=== PATIENT | male | born 1970 | race Caucasian/White ===

== ENCOUNTER 2016-12-21 22:28 | Emergency (ER) | payer OTHER ==
[2016-12-21 22:36] VITALS: BP 120/78; PULSE 76; TEMP 97.6; BMI 26.6
--- NOTE | 2016-12-21 22:46 | PDOC ---
History of Present Illness - General Chief Complaint: Pain Stated Complaint: PAIN Time Seen by Provider: 12/21/16 22:34 History Source: Patient Exam Limitations: No Limitations - History of Present Illness Initial Comments: 12/21/16 22:53 This is a 46-year-old male who comes in complaining of pain radiating from his neck across to his shoulder and into the upper part of his arm. Patient said it is been constant 2 days but was much worse when he woke up this morning. Patient works as a route salesman and driver and denies history of any injury or similar pain in the past. Patient denies any chest pain, shortness of breath, back pain. Patient denies any injury to his neck patient said pain is worse with movement of an arm. Patient took some Tylenol for the pain without relief PAST MEDICAL HISTORY: Hypertension and diabetes PAST SURGICAL HISTORY: no significant history FAMILY HISTORY: no pertinant history SOCIAL HISTORY: Pt lives with family and is employed. MEDICATIONS: reviewed ALLERGIES: As per nursing notes Review of Systems General: No fevers or chills, no weakness, no weight loss HEENT: No change in vision. No sore throat,. No ear pain CardioVascular: No chest pain or shortness of breath Respiratory:No cough, or wheezing. Gastrointestinal: no nausea, vomitting, diarrhea or constipation, No rectal bleeding Genitourinary: No dysuria, hematuria, or frequency Musculoskeletal: Upper shoulder pain as per history of present illness Neurologic: No headache, vertigo, dizziness or loss of consciousness Psychiatric: nor depression Skin: No rashes or easy bruising Endocrine: no increased thirst or abnormal weight change Allergic: no skin or latex allergy All other systems reviewed and normal GENERAL: The patient is awake, alert, and fully oriented, in no acute distress. HEAD: Normal with no signs of trauma. EYES: Pupils equal, round and reactive to light, extraocular movements intact, sclera anicteric, conjunctiva clear. EXTREMITIES: Normal range of motion, no edema. Shoulder: There is some tenderness and spasm of the muscles of the upper shoulder. There is no tenderness on palpation of the cervical or upper thoracic spine. There is no tenderness on palpation of the muscles of the rotator cuff. There is decreased range of motion secondary to discomfort of the upper muscles of the back and shoulder. Neurovascular distal is intact. NEUROLOGICAL: Normal speech, normal gait. PSYCH: Normal mood, normal affect. SKIN: Warm, Dry, normal turgor, no rashes or lesions noted. 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 Patient spends lots of time behind the wheel. Patient comes in complaining of symptoms suggestive of a cervical radiculopathy. Patient given an anti- inflammatory Toradol and a muscle relaxant Flexeril. Patient given referral to an orthopedist for follow-up. Past History - Past Medical History Allergies/Adverse Reactions: Allergies Allergy/AdvReac Type Severity Reaction Status Date / Time No Known Allergies Allergy Verified 02/14/15 08:52 Home Medications: Ambulatory Orders Metformin HCl [Metformin HCl ER] 500 mg PO DAILY 04/12/15 Acetaminophen [Tylenol] 650 mg PO ONCE 12/21/16 Cyclobenzaprine HCl [Flexeril 10 mg] 10 mg PO HS PRN #15 tablet 12/21/16 Naproxen [Naprosyn -] 500 mg PO BID #14 tablet MDD 2 12/21/16 Anemia: No Asthma: No Cancer: No Cardiac Disorders: No CVA: No COPD: No CHF: No Dementia: No Diabetes: Yes (ON MEDS) GI Disorders: No Disorders: No HTN: No Hypercholesterolemia: No Liver Disease: No Seizures: No Thyroid Disease: No - Psycho/Social/Smoking Cessation Hx Anxiety: No Suicidal Ideation: No Smoking History: Current every day smoker Have you smoked in the past 12 months: Yes Number of Cigarettes Smoked Daily: 3 If you are a former smoker, when did you quit?: 3 MONTHS AGO Information on smoking cessation initiated: Yes 'Breaking Loose' booklet given: 12/21/16 Hx Alcohol Use: No Drug/Substance Use Hx: No Substance Use Type: None *Physical Exam - Vital Signs Last Vital Signs Temp Pulse Resp BP Pulse Ox 97.6 F 76 18 120/78 96 12/21/16 22:33 12/21/16 22:33 12/21/16 22:33 12/21/16 22:33 12/21/16 22:33 *DC/Admit/Observation/Transfer Diagnosis at time of Disposition: Cervical radicular pain Diagnosis at time of Disposition: (Ruled Out): Abdominal pain - Discharge Dispostion Disposition: HOME Condition at time of disposition: Stable Admit: No - Prescriptions Prescriptions: Cyclobenzaprine HCl [Flexeril 10 mg] 10 mg PO HS PRN #15 tablet PRN Reason: Pain Naproxen [Naprosyn -] 500 mg PO BID #14 tablet MDD 2 - Referrals Referrals: Vianey Simmons MD [Primary Care Provider] - - Patient Instructions Printed Discharge Instructions: DI for Cervical Radiculopathy Additional Instructions: For the pain you can take Naprosyn 1 tablet twice a day with food don't take on an empty stomach. In addition to that for muscle spasm you can take Flexeril one tablet before bed do not take it during the day if you have to drive or do anything that requires your concentration. Follow-up with an orthopedist orthopedist call Dr. Velasquez at [phone] for an appointment. Return to the emergency department immediately with ANY new, persistent or worsening symptoms. Continue any medications as previously prescribed by your physician. You should follow up with your primary doctor as soon as possible regarding today's emergency department visit. . Please make sure your doctor reviews the results of your emergency evaluation. Thank you for coming to the Emergency Department today for your care. It was a pleasure to see you today. Please note that your evaluation is INCOMPLETE until you follow-up with your doctor.
[2016-12-21] MEDS ORDERED: CYCLOBENZAPRINE HCL 10 MG TABLET (FP) PO ONE (22:49)
[2016-12-21] MEDS ORDERED: KETOROLAC TROMETHAMINE 60 MG/2 ML VIAL IM ONE (22:49)
[2016-12-21] MEDS ORDERED: MAG HYDROX/AL HYDROX/SIMETH 30 ML UNIT-DOSE CUP ONE (22:58)
[2016-12-21] MEDS ORDERED: KETOROLAC TROMETHAMINE 60 MG/2 ML VIAL ONE (22:59)
[2016-12-21] MEDS ORDERED: CYCLOBENZAPRINE HCL 10 MG TABLET (FP) ONE (22:59)
== END 2016-12-21 23:24 | disposition home or self-care (01) ==
LOC: FER 22:28
PROC: 3E0233Z Introduction of Anti-inflammatory into Muscle, Percutaneous Approach (ICD-10-PCS; principal; 2016-12-21)
DX: M54.12 Radiculopathy, cervical region (principal); F17.210 Nicotine dependence, cigarettes, uncomplicated; E11.9 Type 2 diabetes mellitus without complications; Z79.84 Long term (current) use of oral hypoglycemic drugs
CPT/HCPCS: 99282-25

== ENCOUNTER 2017-09-13 23:53 | Inpatient (IN) | payer OTHER ==
[2017-09-14] MEDS ORDERED: KETOROLAC TROMETHAMINE 30 MG/1 ML VIAL IVPUSH ONE (00:02)
--- NOTE | 2017-09-14 00:02 | PDOC ---
History of Present Illness - General Chief Complaint: Wound Stated Complaint: RT FOOT PAIN History Source: Patient Exam Limitations: No Limitations - History of Present Illness Initial Comments: 09/14/17 00:14 This is a 47-year-old male with history of ssh-peouqay-dokmidsaz diabetes. Patient comes in with complaint of right foot pain. Patient said that he just developed an infection between his fourth and fifth toes yesterday and it got progressively worse. Patient went to his primary care doctor today and was started on antibiotics and is taking 2 doses. However patient said foot is getting worse and now there is pus coming from the area as well as increased pain. Patient denies any fevers or chills. Patient denies history of trauma. Patient is otherwise healthy. Patient said his sugars have been elevated PAST MEDICAL HISTORY: As per history of present illness PAST SURGICAL HISTORY: no significant history FAMILY HISTORY: no pertinant history SOCIAL HISTORY: Pt lives with family and is employed. MEDICATIONS: reviewed ALLERGIES: As per nursing notes Review of Systems General: No fevers or chills, no weakness, no weight loss HEENT: No change in vision. No sore throat,. No ear pain CardioVascular: No chest pain or shortness of breath Respiratory:No cough, or wheezing. Gastrointestinal: no nausea, vomitting, diarrhea or constipation, No rectal bleeding Genitourinary: No dysuria, hematuria, or frequency Musculoskeletal: No joint or muscle pain or swelling Neurologic: No headache, vertigo, dizziness or loss of consciousness Psychiatric: nor depression Skin: No rashes or easy bruising Endocrine: no increased thirst or abnormal weight change Allergic: no skin or latex allergy All other systems reviewed and normal Exam: General: Well-nourished well-developed individual, no acute distress HEENT: Throat: Normal, tonsils normal, no erythema or exudate Neck: Supple, no meningeal signs, no lymphadenopathy Eyes::Pupils equal reactive and round, extraocular motion intact Chest: Nontender to palpation Cardiac: S1-S2 normal, regular rate and rhythm, no murmurs rubs or gallops Respiratory: Lungs clear to auscultation bilateral Abdomen: Soft, nondistended, normal bowel sounds, nontender to palpation diffusely Extremities: Right foot there is swelling, redness, increased warmth laterally. There is an area of excoriation between the fourth and fifth toe with some discharge and erythema and increased warmth. Skin: No rashes Neuro: Alert and oriented x3, nonfocal exam, grossly intact, normal gait Psych: Normal mood and affect Chest x-ray no acute pathology Foot x-ray there appears to be some sort of collection in the deep space between the fourth and fifth toe EKG normal sinus rhythm with left axis deviation no acute ST-T wave changes Assessment and plan: This is a 47-year-old male who comes in complaining of pain in his right foot secondary to an infection. Patient was started on amoxicillin without improvement of his symptoms. Patient did not have fever did not have a white count here in the emergency room her left shift. Patient however was started on Zosyn and vancomycin and will be admitted to a telemetry bed for additional antibiotics and management of his cellulitis. Patient most likely will also need a surgical consult to evaluate the extent of the infection 09/14/17 01:17 Past History - Past Medical History Allergies/Adverse Reactions: Allergies Allergy/AdvReac Type Severity Reaction Status Date / Time No Known Allergies Allergy Verified 02/14/15 08:52 Home Medications: Ambulatory Orders Metformin HCl [Metformin HCl ER] 500 mg PO DAILY 04/12/15 Amoxicillin/Potassium Clav [Amox-Clav 875-125 mg Tablet] 1 each PO TID 09/13/17 Anemia: No Asthma: No Cancer: No Cardiac Disorders: No CVA: No COPD: No CHF: No Dementia: No Diabetes: Yes (ON MEDS) GI Disorders: No Disorders: No HTN: No Hypercholesterolemia: No Liver Disease: No Seizures: No Thyroid Disease: No - Suicide/Smoking/Psychosocial Hx Smoking History: Current every day smoker Have you smoked in the past 12 months: Yes Number of Cigarettes Smoked Daily: 3 If you are a former smoker, when did you quit?: 3 MONTHS AGO 'Breaking Loose' booklet given: 12/21/16 Hx Alcohol Use: No Drug/Substance Use Hx: No Substance Use Type: None ED Treatment Course - LABORATORY CBC & Chemistry Diagram: 09/14/17 00:10 09/14/17 00:10 *DC/Admit/Observation/Transfer Diagnosis at time of Disposition: Diabetic foot infection - Discharge Dispostion Condition at time of disposition: Stable Admit: Yes - Referrals - Patient Instructions - Post Discharge Activity
[2017-09-14] MEDS ORDERED: KETOROLAC TROMETHAMINE 30 MG/1 ML VIAL ONE (00:04)
[2017-09-14] MEDS ORDERED: VANCOMYCIN 1,000 MG in DEXTROSE 5%-WATER - 250 ML IVPB STA (00:12)
[2017-09-14] MEDS ORDERED: VANCOMYCIN 1,000 MG VIAL (RESTRICTED TO ID ONLY) ONE (00:15)
[2017-09-14 01:02] LABS: BASOPHIL 0.9 % (0-2.0); EOSINOPHIL 3.1 % (0-4.5); MCHC 33.8 g/dl (32.0-35.9); MEAN CELL VOLUME 85.7 fl (80-96); NEUTROPHILS 48.7 % (42.8-82.8); PLATELET COUNT 112 K/MM3 (134-434); RDW 12.6 % (11.9-15.9); WHITE BLOOD COUNT 8.3 K/mm3 (4.0-10.0)
[2017-09-14 01:24] LABS: ALBUMIN 3.8 g/dl (3.4-5.0); ANION GAP 14 (8-16); BILIRUBIN,TOTAL 0.3 mg/dL (0.2-1.0); CALCIUM 9.1 mg/dL (8.5-10.1); CO2 20 mmol/L (21-32); CREATININE 0.9 mg/dL (0.7-1.3); SGOT/AST 10 U/L (15-37); SGPT/ALT 36 U/L (12-78); TOT PROT 7.2 g/dl (6.4-8.2)
[2017-09-14 01:25] LABS: ALK PHOS 66 U/L (45-117)
[2017-09-14] MEDS ORDERED: PIPERACILLIN/TAZOBACTAM 3.375 GM VIAL IVPB ONE (01:29)
[2017-09-14] MEDS ORDERED: PIPERACILLIN/TAZOB 3.375 GM/50 ML PRE-DOCKED IVPB ONE (01:32)
[2017-09-14 01:35] LABS: GLUCOSE,RANDOM 335 mg/dL (74-106)
[2017-09-14] MEDS ORDERED: INSULIN REGULAR HUMAN 100 UNITS/ML *VIAL IVPUSH ONE (01:42)
[2017-09-14] MEDS ORDERED: INSULIN REGULAR HUMAN 100 UNITS/ML *VIAL ONE (01:46)
[2017-09-14] MEDS ORDERED: PIPERACIL/TAZOB 3.375 GM 3.375 GM/50 ML PREMIX IVPB ONE (01:51)
[2017-09-14 02:56] VITALS: BMI 26.1
--- NOTE | 2017-09-14 04:09 | HP ---
CHIEF COMPLAINT: Pain, Redness and swelling to R-foot PCP: Dr Ruben Simmons HISTORY OF PRESENT ILLNESS: This is a 47 y/o man with a pMHx of DM, who was recently started on insulin. Who presents to the ED with pain, redness, swelling to his right foot and pus between his 4th and 5th toes. Patient reports having an infection to his toes 2 days ago, saw his PCP yesterday and was placed on Amoxicillin. Patient reports the swelling increased up his foot to his lower leg. Patient reports noting a foul smelling pus from around his toes. He denies having fever, chills, cough, SOB, CP, AP, N/V/D, constipation, dysuira ER course was notable for: (1) Foot Xray (2) Glucose 335 (3) Recent Travel: None PAST MEDICAL HISTORY: DM PAST SURGICAL HISTORY: None Social History: Smoking: Cigarettes < 1 pack Alcohol: None Drugs: None Lives with family Family History: Mother: DM Allergies No Known Allergies Allergy (Verified 02/14/15 08:52) HOME MEDICATIONS: Home Medications Medication Instructions Recorded Metformin HCl [Metformin HCl ER] 500 mg PO DAILY 04/12/15 Amoxicillin/Potassium Clav 1 each PO TID 09/13/17 [Amox-Clav 875-125 mg Tablet] REVIEW OF SYSTEMS CONSTITUTIONAL: Absent: fever, chills, diaphoresis, generalized weakness, malaise, loss of appetite, weight change HEENT: Absent: rhinorrhea, nasal congestion, throat pain, throat swelling, difficulty swallowing, mouth swelling, ear pain, eye pain, visual changes CARDIOVASCULAR: Absent: chest pain, syncope, palpitations, irregular heart rate, lightheadedness , peripheral edema RESPIRATORY: Absent: cough, shortness of breath, dyspnea with exertion, orthopnea, wheezing, stridor, hemoptysis GASTROINTESTINAL: Absent: abdominal pain, abdominal distension, nausea, vomiting, diarrhea, constipation, melena, hematochezia GENITOURINARY: Absent: dysuria, frequency, urgency, hesitancy, hematuria, flank pain, genital pain MUSCULOSKELETAL: right foot pain/tightness Absent: myalgia, arthralgia, joint swelling, back pain, neck pain SKIN: pus, redness to toes #4-5 Absent: rash, itching, pallor HEMATOLOGIC/IMMUNOLOGIC: Absent: easy bleeding, easy bruising, lymphadenopathy, frequent infections ENDOCRINE: Absent: unexplained weight gain, unexplained weight loss, heat intolerance, cold intolerance NEUROLOGIC: Absent: headache, focal weakness or paresthesias, dizziness, unsteady gait, seizure, mental status changes, bladder or bowel incontinence PSYCHIATRIC: Absent: anxiety, depression, suicidal or homicidal ideation, hallucinations. PHYSICAL EXAMINATION Vital Signs - 24 hr 09/13/17 09/14/17 09/14/17 23:59 01:17 01:49 Temperature 98.4 F 97.5 F L 97.5 F L Pulse Rate 79 71 71 Respiratory 16 16 16 Rate Blood Pressure 122/81 107/63 107/63 O2 Sat by Pulse 97 97 Oximetry (%) GENERAL: Awake, alert, and fully oriented, in no acute distress. HEAD: Normal with no signs of trauma. EYES: Pupils equal, round and reactive to light, extraocular movements intact, sclera anicteric, conjunctiva clear. No lid lag. EARS, NOSE, THROAT: Ears normal, nares patent, oropharynx clear without exudates. Moist mucous membranes. NECK: Normal range of motion, supple without lymphadenopathy, JVD, or masses. LUNGS: Breath sounds equal, clear to auscultation bilaterally. No wheezes, and no crackles. No accessory muscle use. HEART: Regular rate and rhythm, normal S1 and S2 without murmur, rub or gallop. ABDOMEN: Soft, nontender, not distended, normoactive bowel sounds, no guarding, no rebound, no masses. No hepatomegaly or splenomegaly. MUSCULOSKELETAL: Normal range of motion at all joints. No bony deformities or tenderness. No CVA tenderness. UPPER EXTREMITIES: 2+ pulses, warm, well-perfused. No cyanosis. No clubbing. No peripheral edema. LOWER EXTREMITIES: 2+ pulses, warm, well-perfused. No calf tenderness. +1 R- foot pitting peripheral edema NEUROLOGICAL: Cranial nerves II-XII intact. Normal speech. Gait not observed. PSYCHIATRIC: Cooperative. Good eye contact. Appropriate mood and affect. SKIN: Warm, dry, normal turgor, no rashes. normal capillary refill. +erythema, TTP between #4, #5 toes with yellow tinged discharge noted Laboratory Results - last 24 hr 09/14/17 09/14/17 09/14/17 00:10 00:10 03:08 WBC 8.3 RBC 5.36 Hgb 15.5 Hct 46.0 MCV 85.7 MCH 29.0 MCHC 33.8 RDW 12.6 Plt Count 112 L MPV 11.0 Neutrophils % 48.7 D Lymphocytes % 40.0 D Monocytes % 7.3 Eosinophils % 3.1 Basophils % 0.9 Sodium 139 Potassium 4.1 D Chloride 105 Carbon Dioxide 20 L Anion Gap 14 BUN 11 D Creatinine 0.9 D Creat Clearance w eGFR > 60 POC Glucometer 110 Random Glucose 335 H* D Calcium 9.1 Total Bilirubin 0.3 D AST 10 L D ALT 36 D Alkaline Phosphatase 66 D Total Protein 7.2 Albumin 3.8 D ASSESSMENT/PLAN: This a 47 y/o man with a PMHx of DM. Placed in Observation for Diabetic Foot Infection secondary to Failed Outpatient Therapy for further evaluation of their emergent condition. FEN - Tolerates PO fluids - Replete lytes prn - Diabetic Diet Code Status: Full Code Dispo: Observation Problem List - Problem (1) Diabetic foot infection Assessment/Plan: - Likely secondary to staph - Wound Culture-pending - Appreciate ID Consult - Given Zosyn, Vancomycin in ED, will continue - Appreciate Surgical Consult - Consider Podiatry Consult - Repeat CBC, BMP in am - Elevate extremity - Pain Mgmt- Motrin - Consider Hyperbaric Therapy in outpatient Code(s): E11.69 - TYPE 2 DIABETES MELLITUS WITH OTHER SPECIFIED COMPLICATION; L08.9 - LOCAL INFECTION OF THE SKIN AND SUBCUTANEOUS TISSUE, UNSP (2) Diabetes mellitus Assessment/Plan: - Uncontrolled - BGMs - ISS - HgbA1C in am - Monitor renal function - FU with Endocrinology outpatient - Hold Metformin concern for LA Code(s): E11.9 - TYPE 2 DIABETES MELLITUS WITHOUT COMPLICATIONS (3) DVT prophylaxis Assessment/Plan: - OOB - Heparin SQ Code(s): WLY1169 - Visit type - Emergency Visit Emergency Visit: Yes ED Registration Date: 09/14/17 Care time: The patient presented to the Emergency Department on the above date and was hospitalized for further evaluation of their emergent condition. - New Patient This patient is new to me today: Yes Date on this admission: 09/14/17 - Critical Care Critical Care patient: No
[2017-09-14] MEDS: INSULIN SLIDING SCALE (NOVOLOG) 1 VIAL SQ SCH ×4 (06:53→17:50)
--- NOTE | 2017-09-14 08:56 | PN ---
Physical Exam: SUBJECTIVE: Patient seen and examined, patient reports improvement of pain to the right foot, denies any tactile fevers. OBJECTIVE: patient is a 47 y/o male, with a past medical history of IDDM. patient was admitted from the emergency department for cellulitis to the right foot after failing outpatient antibiotic therapy. Vital Signs Period Temp Pulse Resp BP Sys/Osman Pulse Ox Last 24 Hr 97.4 F-98.4 F 68-79 16-18 107-122/63-81 97-97 GENERAL: The patient is awake, alert, and fully oriented, in no acute distress. HEAD: Normal with no signs of trauma. EYES: PERRL, extraocular movements intact, sclera anicteric, conjunctiva clear. No ptosis. ENT: Ears normal, nares patent, oropharynx clear without exudates, moist mucous membranes. NECK: Trachea midline, full range of motion, supple. LUNGS: Breath sounds equal, clear to auscultation bilaterally, no wheezes, no crackles, no accessory muscle use. HEART: Regular rate and rhythm, S1, S2 without murmur, rub or gallop. ABDOMEN: Soft, nontender, nondistended, normoactive bowel sounds, no guarding, no rebound, no hepatosplenomegaly, no masses. EXTREMITIES: 2+ pulses, warm, well-perfused, no edema. RIGHT LOWER EXTREMITY: 5cm of erythema to dorsum of foot, tenderness noted to the webspace of the 4th and 5th digits with induration. NEUROLOGICAL: Cranial nerves II through XII grossly intact. Normal speech, gait not observed. PSYCH: Normal mood, normal affect. SKIN: Warm, dry, normal turgor, no rashes or lesions noted Laboratory Results - last 24 hr 09/14/17 09/14/17 09/14/17 00:10 00:10 03:08 WBC 8.3 RBC 5.36 Hgb 15.5 Hct 46.0 MCV 85.7 MCH 29.0 MCHC 33.8 RDW 12.6 Plt Count 112 L MPV 11.0 Neutrophils % 48.7 D Lymphocytes % 40.0 D Monocytes % 7.3 Eosinophils % 3.1 Basophils % 0.9 Sodium 139 Potassium 4.1 D Chloride 105 Carbon Dioxide 20 L Anion Gap 14 BUN 11 D Creatinine 0.9 D Creat Clearance w eGFR > 60 POC Glucometer 110 Random Glucose 335 H* D Calcium 9.1 Total Bilirubin 0.3 D AST 10 L D ALT 36 D Alkaline Phosphatase 66 D Total Protein 7.2 Albumin 3.8 D 09/14/17 06:52 WBC RBC Hgb Hct MCV MCH MCHC RDW Plt Count MPV Neutrophils % Lymphocytes % Monocytes % Eosinophils % Basophils % Sodium Potassium Chloride Carbon Dioxide Anion Gap BUN Creatinine Creat Clearance w eGFR POC Glucometer 134 Random Glucose Calcium Total Bilirubin AST ALT Alkaline Phosphatase Total Protein Albumin Active Medications Generic Name Dose Route Start Last Admin Trade Name Freangel PRN Reason Stop Dose Admin Insulin Aspart 1 vial 09/14/17 07:00 09/14/17 06:53 Novolog Vial Sliding Scale - SQ Not Given [facility]IDAC [facility] Protocol ASSESSMENT/PLAN: 1) ID cellulitis of right foot - xray of right foot, no foreign body or gas noted - continue zosyn and vancomycin, appreciate ID input for antibiotic approval - pending mri of right lower extremity today to rule out osteo - case discussed with Dr Stone, podiatry, will evaluate patient today - follow wound cultures taken in ED, no leukocytosis, patient is afebrile - trend wbc and fever curve 2) endo iddm - pending hemoglobin a1c, fingersticks achs, continue regular insulin sliding scale f/e/n - npo until podiatry eval - replete electrolytes prn ppx - hold ac pending podiatry eval - scd - oob - pepcid dispo: requires inpatient admission - Visit type - Emergency Visit Emergency Visit: Yes ED Registration Date: 09/14/17 Care time: The patient presented to the Emergency Department on the above date and was hospitalized for further evaluation of their emergent condition. - New Patient This patient is new to me today: Yes Date on this admission: 09/18/17 - Critical Care Critical Care patient: No - Discharge Referral Referred to [facility] Med P.C.: No
[2017-09-14 09:07] LABS: BASOPHIL 0.7 % (0-2.0); MCH 29.5 pg (25.7-33.7); MCHC 34.1 g/dl (32.0-35.9); MEAN CELL VOLUME 86.5 fl (80-96); PLATELET COUNT 105 K/MM3 (134-434); RDW 11.8 % (11.9-15.9); WHITE BLOOD COUNT 9.2 K/mm3 (4.0-10.8)
[2017-09-14 09:16] LABS: ANION GAP 8 (8-16); CALCIUM 9.1 mg/dl (8.4-10.2); CO2 22 mmol/L (22-28); CREATININE 0.8 mg/dl (0.6-1.3); GLUCOSE,RANDOM 186 mg/dl (74-106)
[2017-09-14] MEDS ORDERED: ACETAMINOPHEN 325 MG TABLET (FP) PO PRN (11:31)
--- NOTE | 2017-09-14 11:34 | PN ---
Progress Note (short form) - Note Progress Note: ID Consult dictated Diabetic foot infection NIDDM Await c/s Podiatry evaluation Empiric vancomycin zosyn
[2017-09-14] MEDS ORDERED: SODIUM CHLORIDE 0.9%/KCL 20 MEQ/1,000 ML INFUS.BAG IV SCH (11:45)
[2017-09-14] MEDS ORDERED: oxyCODONE HCL 5 MG TABLET PO PRN ×2 (11:49→15:47)
[2017-09-14] MEDS ORDERED: VANCOMYCIN 1 GRAM (PRE-DOCKED) 1,000 MG/250 ML BAG IVPB ONE (12:00)
[2017-09-14] MEDS: RANITIDINE HCL 150 MG TABLET (FP) PO SCH (12:00)
--- NOTE | 2017-09-14 12:07 | CONS ---
DATE OF CONSULTATION: 09/14/2017 HISTORY OF PRESENT ILLNESS: The patient is a 47-year-old diabetic male evaluated for right diabetic foot infection. Patient states that one day prior to admission, he developed acute onset of right foot pain, swelling, and erythema. He had apparently developed some type of break in the skin in the web space of the right 4th and 5th toes. He was seen by his primary care physician and was prescribed Augmentin. Despite taking 2 doses, it became progressively worse. He presented to the emergency room where he was admitted. There were reports that purulent drainage was noted. He had erythema extending to the middle aspect of the dorsum of the foot. Patient reports pain on ambulation. He denies any fever or chills. PAST MEDICAL HISTORY: Positive for fkq-kybktqg-mavumexdu diabetes mellitus. ALLERGIES: No known allergies. MEDICATIONS: Metformin and Augmentin. SOCIAL HISTORY: Positive for tobacco use. LABORATORY DATA: White count 9.2, hematocrit 48.6, platelet count 105. BUN 14, creatinine 0.8. X-ray of the foot negative for fracture or dislocation. Chest x-ray negative. PHYSICAL EXAMINATION: General: He is awake and alert. He is not acutely toxic-appearing. Vital signs: Temperature 97.4, blood pressure 118/71, pulse 68 and regular, respirations 18 per minute. HEENT: Sclerae anicteric. Heart: Heart sounds S1, S2. Lungs: Clear. Abdomen: Soft. No tenderness elicited. Extremities: There is a fissure present between the right 4th and 5th toes. There is mild swelling of the dorsum of the right foot and erythema extending from the base of the toes to the mid foot. IMPRESSION: 1. Diabetic foot infection, right foot. 2. Gws-vaqxksm-ypnaxsind diabetes mellitus. Continue vancomycin and Zosyn. Await wound culture results, podiatry evaluation. May substitute oral antibiotic therapy over the next 24 hours. Would suggest p.o. clindamycin and Levaquin pending cultures. Thank you for the kind referral. LUI BARBA M.D. BRITNEY/[id number]
[2017-09-14] MEDS: VANCOMYCIN 1 GRAM (PRE-DOCKED) 1,000 MG/250 ML BAG IVPB SCH ×2 (12:08→23:51)
[2017-09-14] MEDS: PIPERACILLIN/TAZOB 3.375 GM 3.375 GM/50 ML BAG IVPB SCH ×2 (12:08→17:52)
--- NOTE | 2017-09-14 16:06 | EKG ---
Test Reason : Blood Pressure : / mmHG Vent. Rate : 075 BPM Atrial Rate : 075 BPM P-R Int : 166 ms QRS Dur : 088 ms QT Int : 370 ms P-R-T Axes : 040 -31 043 degrees QTc Int : 413 ms SINUS RHYTHM RSR' OR QR PATTERN IN V1 SUGGESTS RIGHT VENTRICULAR CONDUCTION DELAY NO PREVIOUS ECGS AVAILABLE Confirmed by NIYA COTTRELL MD ([id number]) on 09/14/2017 4:06:22 PM Referred By: HEATH MARSH Confirmed By:INYA COTTRELL MD
[2017-09-14] MEDS ORDERED: INSULIN (NOVOLOG) ASPART 100 UNITS/ML 10ML VIAL ONE ×2 (17:32→23:02)
[2017-09-14] MEDS ORDERED: Insulin (LOG) Aspart 100 UNITS/ML VIAL SQ ONE (23:00)
[2017-09-15] MEDS: PIPERACILLIN/TAZOB 3.375 GM 3.375 GM/50 ML BAG IVPB SCH ×3 (02:07→17:19)
[2017-09-15] MEDS: INSULIN SLIDING SCALE (NOVOLOG) 1 VIAL SQ SCH ×3 (06:39→17:19)
[2017-09-15 08:56] LABS: ANION GAP 5 (8-16); CALCIUM 9.2 mg/dl (8.4-10.2); CO2 22 mmol/L (22-28); CREATININE 0.8 mg/dl (0.6-1.3); GLUCOSE,RANDOM 245 mg/dl (74-106); PHOSPHOROUS 4.7 mg/dl (2.5-4.6)
[2017-09-15 09:03] LABS: BASOPHIL 0.9 % (0-2.0); EOSINOPHIL 2.6 % (0-4.5); MCH 29.4 pg (25.7-33.7); MCHC 33.9 g/dl (32.0-35.9); MEAN CELL VOLUME 86.7 fl (80-96); MEAN PLT VOLUME 12.1 fl (7.5-11.1); NEUTROPHILS 54.4 % (42.8-82.8); PLATELET COUNT 107 K/MM3 (134-434); RDW 11.6 % (11.9-15.9); WHITE BLOOD COUNT 8.3 K/mm3 (4.0-10.8)
[2017-09-15] MEDS: RANITIDINE HCL 150 MG TABLET (FP) PO SCH (10:36)
[2017-09-15] MEDS ORDERED: INSULIN (NOVOLOG) ASPART 100 UNITS/ML 10ML VIAL ONE (11:39)
--- NOTE | 2017-09-15 12:22 | PN ---
Physical Exam: SUBJECTIVE: Patient seen and examined at the bedside. OBJECTIVE: Vital Signs Period Temp Pulse Resp BP Sys/Osman Pulse Ox Last 24 Hr 98.6 F-98.9 F 63-69 18-18 111-116/63-67 96-98 GENERAL: The patient is awake, alert, and fully oriented, in no acute distress. HEAD: Normal with no signs of trauma. EYES: PERRL, extraocular movements intact, sclera anicteric, conjunctiva clear. No ptosis. ENT: Ears normal, nares patent, oropharynx clear without exudates, moist mucous membranes. NECK: Trachea midline, full range of motion, supple. LUNGS: Breath sounds equal, clear to auscultation bilaterally, no wheezes, no crackles, no accessory muscle use. HEART: Regular rate and rhythm, S1, S2 without murmur, rub or gallop. ABDOMEN: Soft, nontender, nondistended, normoactive bowel sounds, no guarding, no rebound, no hepatosplenomegaly, no masses. EXTREMITIES: right foot anterior aspect edema and tenderness, no redness NEUROLOGICAL: Normal speech, gait not observed. PSYCH: Normal mood, normal affect. Laboratory Results - last 24 hr 09/14/17 09/14/17 09/15/17 17:05 21:48 06:34 WBC RBC Hgb Hct MCV MCH MCHC RDW Plt Count MPV Neutrophils % Lymphocytes % Monocytes % Eosinophils % Basophils % Sodium Potassium Chloride Carbon Dioxide Anion Gap BUN Creatinine POC Glucometer 151 291 238 Random Glucose Calcium Phosphorus Magnesium 09/15/17 09/15/17 09/15/17 07:08 07:08 11:32 WBC 8.3 RBC 5.53 Hgb 16.3 Hct 47.9 MCV 86.7 MCH 29.4 MCHC 33.9 RDW 11.6 L Plt Count 107 L MPV 12.1 H D Neutrophils % 54.4 Lymphocytes % 35.3 Monocytes % 6.8 Eosinophils % 2.6 Basophils % 0.9 Sodium 137 Potassium 4.2 Chloride 110 H Carbon Dioxide 22 Anion Gap 5 L BUN 14 Creatinine 0.8 POC Glucometer 209 Random Glucose 245 H D Calcium 9.2 Phosphorus 4.7 H Magnesium 2.0 Active Medications Generic Name Dose Route Start Last Admin Trade Name Freq PRN Reason Stop Dose Admin Acetaminophen 650 mg 09/14/17 11:31 Tylenol - PO Q4H PRN FEVER OR PAIN LEVEL 1-4 Potassium Chloride/Sodium Chloride 20 meq in 1,000 mls @ 100 mls/hr 09/14/17 11:45 09/14/17 12:08 Ns+20 Meq Kcl - IV 100 mls/hr ASDIR RONNI Administration Vancomycin HCl 1,000 mg in 250 mls @ 166.667 mls/hr 09/14/17 12:30 09/14/17 23:51 Vancomycin (Pre-Docked) IVPB 166.667 mls/hr Q12H RONNI Administration Piperacillin Sod/Tazobactam Sod 3.375 gm in 50 mls @ 100 mls/hr 09/14/17 11: 45 09/15/17 10:36 Zosyn 3.375gm Ivpb (Pre-Docked) IVPB 100 mls/hr Q8H-IV RONNI Administration Protocol Insulin Aspart 1 vial 09/15/17 12:21 Novolog Vial Sliding Scale - SQ TIDAC RONNI Protocol Oxycodone HCl 5 mg 09/14/17 15:47 Roxicodone - PO Q4H PRN PAIN LEVEL >5 Ranitidine HCl 150 mg 09/14/17 11:45 09/15/17 10:36 Zantac - PO 150 mg DAILY RONNI Administration ASSESSMENT/PLAN: Patient 47 year old male with a significant past medical history of diabetes mellitus. He comes into the ED on 09/14/2017 with complaints of right foot pain. Patient said that he just developed an infection between his fourth and fifth toes yesterday and it got progressively worse. Patient went to his primary care doctor today and was started on antibiotics. However patient reported that his foot is getting worse and now there is pus coming from the area as well as increased pain. Patient denies any fevers or chills. Patient denies history of trauma. Imaging: Lower ext MRI: pending official read. ID: Cellulits of right foot, acute On Zosyn and Vanco as per ID MRI pending Podiatry following Blood cultures pending Wound cultures shows lactose fermenting neg bacilli Monitor vitals, labs Endocrine: Diabetes, blood sugars elevated Novolog with tighter control BGMs ac/hs Hmga1c 9.8 F.E.N. Fluids: tolerating PO, will d/c ivf Electrolytes: wnl monitor Nutrition: diabetic diet Prophyaxis DVT: SCDs GI: Zantac Disposition: full code. - Visit type - Emergency Visit Emergency Visit: Yes ED Registration Date: 09/14/17 Care time: The patient presented to the Emergency Department on the above date and was hospitalized for further evaluation of their emergent condition. - New Patient This patient is new to me today: Yes Date on this admission: 09/15/17 - Critical Care Critical Care patient: No - Discharge Referral Referred to [facility] Med [facility].: No
[2017-09-15] MEDS: VANCOMYCIN 1 GRAM (PRE-DOCKED) 1,000 MG/250 ML BAG IVPB SCH (12:35)
[2017-09-15 13:55] LABS: ALBUMIN 3.7 g/dl (3.5-5.0); ALK PHOS 58 U/L (32-92); ANION GAP 5 (8-16); BILIRUBIN,TOTAL 0.9 mg/dl (0.2-1.0); CALCIUM 9.4 mg/dl (8.4-10.2); CO2 23 mmol/L (22-28); CREATININE 0.9 mg/dl (0.6-1.3); GLUCOSE,RANDOM 249 mg/dl (74-106); SGOT/AST 17 U/L (10-42); SGPT/ALT 27 U/L (10-40); TOT PROT 6.5 g/dl (6.4-8.3)
[2017-09-16] MEDS: VANCOMYCIN 1 GRAM (PRE-DOCKED) 1,000 MG/250 ML BAG IVPB SCH ×2 (00:07→12:45)
[2017-09-16] MEDS: PIPERACILLIN/TAZOB 3.375 GM 3.375 GM/50 ML BAG IVPB SCH ×2 (02:04→09:34)
[2017-09-16 06:06] VITALS: TEMP 98
[2017-09-16] MEDS: INSULIN SLIDING SCALE (NOVOLOG) 1 VIAL SQ SCH ×2 (07:35→12:33)
--- NOTE | 2017-09-16 08:21 | PN ---
Physical Exam: SUBJECTIVE: Patient seen and examined; states he is feeling better. OBJECTIVE: 09/14/2017 Podiatry chart notes reviewed: Continue IV Vanco and Zosyn, switch to PO antbitics if cellulitis improves over next 1-2 days No need for I&D Patient to follow up in podiatry office next week after discharge Vital Signs Period Temp Pulse Resp BP Sys/Osman Pulse Ox Last 24 Hr 97.8 F-98.0 F 60-66 16-18 104-125/65-88 95-98 GENERAL: The patient is awake, alert, and fully oriented, in no acute distress. HEAD: Normal with no signs of trauma. EYES: PERRL, extraocular movements intact, sclera anicteric, conjunctiva clear. No ptosis. ENT: Ears normal, nares patent, oropharynx clear without exudates, moist mucous membranes. NECK: Trachea midline, full range of motion, supple. LUNGS: Breath sounds equal, clear to auscultation bilaterally, no wheezes, no crackles, no accessory muscle use. HEART: Regular rate and rhythm, S1, S2 without murmur, rub or gallop. ABDOMEN: Soft, nontender, nondistended, normoactive bowel sounds, no guarding, no rebound, no hepatosplenomegaly, no masses. EXTREMITIES: right foot anterior aspect improvement of edema and tenderness, no redness or tenderness on exam. NEUROLOGICAL: Normal speech, gait not observed. PSYCH: Normal mood, normal affect. Laboratory Results - last 24 hr 09/15/17 09/15/17 09/15/17 07:08 07:08 11:32 WBC 8.3 RBC 5.53 Hgb 16.3 Hct 47.9 MCV 86.7 MCH 29.4 MCHC 33.9 RDW 11.6 L Plt Count 107 L MPV 12.1 H D Neutrophils % 54.4 Lymphocytes % 35.3 Monocytes % 6.8 Eosinophils % 2.6 Basophils % 0.9 Sodium 137 Potassium 4.2 Chloride 110 H Carbon Dioxide 22 Anion Gap 5 L BUN 14 Creatinine 0.8 Creat Clearance w eGFR POC Glucometer 209 Random Glucose 245 H D Calcium 9.2 Phosphorus 4.7 H Magnesium 2.0 Total Bilirubin AST ALT Alkaline Phosphatase Total Protein Albumin 09/15/17 09/15/17 09/15/17 13:10 16:58 21:34 WBC RBC Hgb Hct MCV MCH MCHC RDW Plt Count MPV Neutrophils % Lymphocytes % Monocytes % Eosinophils % Basophils % Sodium 135 L Potassium 3.8 Chloride 107 Carbon Dioxide 23 Anion Gap 5 L BUN 13 Creatinine 0.9 Creat Clearance w eGFR > 60 POC Glucometer 277 217 Random Glucose 249 H Calcium 9.4 Phosphorus Magnesium Total Bilirubin 0.9 D AST 17 D ALT 27 D Alkaline Phosphatase 58 D Total Protein 6.5 Albumin 3.7 Active Medications Generic Name Dose Route Start Last Admin Trade Name Freq PRN Reason Stop Dose Admin Acetaminophen 650 mg 09/14/17 11:31 Tylenol - PO Q4H PRN FEVER OR PAIN LEVEL 1-4 Docusate Sodium 100 mg 09/16/17 08:15 Colace - PO BID RONNI Vancomycin HCl 1,000 mg in 250 mls @ 166.667 mls/hr 09/14/17 12:30 09/16/17 00:07 Vancomycin (Pre-Docked) IVPB 166.667 mls/hr Q12H RONNI Administration Piperacillin Sod/Tazobactam Sod 3.375 gm in 50 mls @ 100 mls/hr 09/14/17 11: 45 09/16/17 02:04 Zosyn 3.375gm Ivpb (Pre-Docked) IVPB 100 mls/hr Q8H-IV RONNI Administration Protocol Insulin Aspart 1 vial 09/15/17 12:21 09/15/17 17:19 Novolog Vial Sliding Scale - SQ 8 units TIDAC RONNI Administration Protocol Oxycodone HCl 5 mg 09/14/17 15:47 Roxicodone - PO Q4H PRN PAIN LEVEL >5 Polyethylene Glycol 17 gm 09/16/17 08:15 Miralax (For Daily Use) - PO DAILY RONNI Ranitidine HCl 150 mg 09/14/17 11:45 09/15/17 10:36 Zantac - PO 150 mg DAILY RONNI Administration ASSESSMENT/PLAN: Patient 47 year old male with a significant past medical history of diabetes mellitus. He comes into the ED on 09/14/2017 with complaints of right foot pain. Patient said that he just developed an infection between his fourth and fifth toes yesterday and it got progressively worse. Patient went to his primary care doctor today and was started on antibiotics. However patient reported that his foot is getting worse and now there is pus coming from the area as well as increased pain. Patient denies any fevers or chills. Patient denies history of trauma. Imaging: Lower ext MRI: pending ID: Cellulits of right foot, resolving WBC within normal limits, afebrile, blood culures ngtd On Zosyn and Vanco as per ID MRI pending official read: left message at MRI department Podiatry evaluated, notes reviewed, no I&D needed, outpatient followup Blood cultures negative Wound cultures shows lactose fermenting neg bacilli Monitor vitals, labs Consider switch to PO antibiotics as per ID, outpatient podiatry followup Endocrine: Diabetes, blood sugars elevated Novolog with tighter control during hospitalization BGMs in the 200s Home Metformin changed to Metformin 500mg BID instead of daily Patient encouraged to check his BGMs at home and to keep a record He states he has arranged to see an Pulverizer Operator on discharge He may need to start Novolog if his blood sugars remain elevated Discussed findings with patient and he is in agreement Glucometer and supplies ordered Hmga1c 9.8 Hematology: Thrombocytopenia, chronic Platelets previously 77 in 2014, now 120 today Patient informed to have repeat blood work with PCP as he may need further workup, he is in agreement F.E.N. Fluids: tolerating PO Electrolytes: wnl monitor Nutrition: diabetic diet Prophyaxis DVT: SCDs GI: Zantac Disposition: full code. Visit type - Emergency Visit Emergency Visit: Yes ED Registration Date: 09/14/17 Care time: The patient presented to the Emergency Department on the above date and was hospitalized for further evaluation of their emergent condition. - New Patient This patient is new to me today: No - Critical Care Critical Care patient: No - Discharge Referral Referred to [facility] Med P.C.: No
[2017-09-16] MEDS: DOCUSATE SODIUM 100 MG CAPSULE (FP) PO SCH ×2 (08:35→10:36)
[2017-09-16] MEDS: POLYETHYLENE GLYCOL 3350 119 GM BTL PO SCH ×2 (08:35→10:36)
[2017-09-16 09:19] LABS: BASOPHIL 0.9 % (0-2.0); EOSINOPHIL 2.9 % (0-4.5); MCH 29.6 pg (25.7-33.7); MEAN CELL VOLUME 87.2 fl (80-96); MEAN PLT VOLUME 12.6 fl (7.5-11.1); NEUTROPHILS 45.1 % (42.8-82.8); PLATELET COUNT 120 K/MM3 (134-434); RDW 11.8 % (11.9-15.9); WHITE BLOOD COUNT 7.7 K/mm3 (4.0-10.8)
[2017-09-16 09:32] LABS: ALBUMIN 3.7 g/dl (3.5-5.0); ALK PHOS 50 U/L (32-92); ANION GAP 8 (8-16); BILIRUBIN,TOTAL 1.1 mg/dl (0.2-1.0); CO2 24 mmol/L (22-28); CREATININE 0.9 mg/dl (0.6-1.3); GLUCOSE,RANDOM 218 mg/dl (74-106); SGOT/AST 16 U/L (10-42); SGPT/ALT 24 U/L (10-40); TOT PROT 6.5 g/dl (6.4-8.3)
[2017-09-16] MEDS: RANITIDINE HCL 150 MG TABLET (FP) PO SCH (09:34)
--- NOTE | 2017-09-16 13:45 | PN ---
Progress Note (short form) - Note Progress Note: doing well mri- no osteo no abscess Vital Signs Period Temp Pulse Resp BP Sys/Osman Pulse Ox Last 24 Hr 97.8 F-98.0 F 60-66 16-18 104-125/65-88 95-98 foot with shallow ulcer between 4/5 toes, no erythema no pain or edema CBC, BMP 09/16/17 08:00 09/16/17 08:00 Microbiology 09/14/17 00:33 Foot - Right Gram Stain - Final 09/14/17 00:33 Foot - Right Wound Culture - Final Staphylococcus Coagulase Neg 09/14/17 00:10 Blood - Peripheral Venous Blood Culture - Preliminary NO GROWTH OBTAINED AFTER 48 HOURS, INCUBATION TO CONTINUE FOR 3 DAYS. 09/14/17 00:10 Blood - Peripheral Venous Blood Culture - Preliminary NO GROWTH OBTAINED AFTER 48 HOURS, INCUBATION TO CONTINUE FOR 3 DAYS. a/p resolving cellulitis diabetes can switch to po augmentin for 5 days 875 bid f/u with podiatry he is requesting endocrine referral d/w hospitalist please call back if needed
--- NOTE | 2017-09-16 14:12 | DS ---
Physical Exam: SUBJECTIVE: Patient seen and examined OBJECTIVE: 09/14/2017 Podiatry chart notes reviewed: Continue IV Vanco and Zosyn, switch to PO antbitics if cellulitis improves over next 1-2 days No need for I&D Patient to follow up in podiatry office next week after discharge Vital Signs Period Temp Pulse Resp BP Sys/Osman Pulse Ox Last 24 Hr 97.8 F-98.0 F 60-66 16-18 104-125/65-88 95-98 PHYSICAL EXAM GENERAL: The patient is awake, alert, and fully oriented, in no acute distress. HEAD: Normal with no signs of trauma. EYES: PERRL, extraocular movements intact, sclera anicteric, conjunctiva clear. No ptosis. ENT: Ears normal, nares patent, oropharynx clear without exudates, moist mucous membranes. NECK: Trachea midline, full range of motion, supple. LUNGS: Breath sounds equal, clear to auscultation bilaterally, no wheezes, no crackles, no accessory muscle use. HEART: Regular rate and rhythm, S1, S2 without murmur, rub or gallop. ABDOMEN: Soft, nontender, nondistended, normoactive bowel sounds, no guarding, no rebound, no hepatosplenomegaly, no masses. EXTREMITIES: right foot anterior aspect improvement of edema and tenderness, no redness or tenderness on exam. NEUROLOGICAL: Normal speech, gait not observed. PSYCH: Normal mood, normal affect. LABS Laboratory Results - last 24 hr 09/15/17 09/15/17 09/16/17 16:58 21:34 08:00 WBC 7.7 RBC 5.50 Hgb 16.3 Hct 48.0 MCV 87.2 MCH 29.6 MCHC 34.0 RDW 11.8 L Plt Count 120 L MPV 12.6 H Neutrophils % 45.1 Lymphocytes % 44.0 H D Monocytes % 7.1 Eosinophils % 2.9 Basophils % 0.9 Sodium Potassium Chloride Carbon Dioxide Anion Gap BUN Creatinine Creat Clearance w eGFR POC Glucometer 277 217 Random Glucose Calcium Total Bilirubin AST ALT Alkaline Phosphatase Total Protein Albumin Vancomycin Pre-Dose 09/16/17 09/16/17 09/16/17 08:00 12:00 12:29 WBC RBC Hgb Hct MCV MCH MCHC RDW Plt Count MPV Neutrophils % Lymphocytes % Monocytes % Eosinophils % Basophils % Sodium 138 Potassium 4.3 Chloride 106 Carbon Dioxide 24 Anion Gap 8 BUN 13 Creatinine 0.9 Creat Clearance w eGFR > 60 POC Glucometer 272 Random Glucose 218 H Calcium 9.0 Total Bilirubin 1.1 H D AST 16 ALT 24 Alkaline Phosphatase 50 Total Protein 6.5 Albumin 3.7 Vancomycin Pre-Dose 5.850 HOSPITAL COURSE: Date of Admission:09/14/17 Date of Discharge: 09/16/17 ASSESSMENT/PLAN: Patient 47 year old male with a significant past medical history of diabetes mellitus. He comes into the ED on 09/14/2017 with complaints of right foot pain. Patient said that he just developed an infection between his fourth and fifth toes yesterday and it got progressively worse. Patient went to his primary care doctor today and was started on antibiotics. However patient reported that his foot is getting worse and now there is pus coming from the area as well as increased pain. Patient denies any fevers or chills. Patient denies history of trauma. Imaging: Lower ext MRI: negative for osteomylitis ID: Cellulits of right foot, resolving WBC within normal limits, afebrile, blood culures ngtd MRI negative Podiatry evaluated, notes reviewed, no I&D needed, outpatient followup Blood cultures negative Wound cultures shows lactose fermenting neg bacilli Monitor vitals, labs Continue Augmentin 875mg BID x 5 more days Endocrine: Diabetes, blood sugars elevated Novolog with tighter control during hospitalization BGMs in the 200s Home Metformin changed to Metformin 500mg BID instead of daily Patient encouraged to check his BGMs at home and to keep a record He states he has arranged to see an Service Person on discharge He may need to start Novolog if his blood sugars remain elevated Discussed findings with patient and he is in agreement Glucometer and supplies ordered Hmga1c 9.8 Hematology: Thrombocytopenia, chronic Platelets previously 77 in 2015, now 120 today Patient informed to have repeat blood work with PCP as he may need further workup, he is in agreement F.E.N. Fluids: tolerating PO Electrolytes: wnl monitor Nutrition: diabetic diet Prophyaxis DVT: SCDs GI: Zantac Disposition: full code. Minutes to complete discharge: 60 Discharge Summary Reason For Visit: DIABETIC FOOT INFECTION Current Active Problems DVT prophylaxis (Acute) Diabetes mellitus (Acute) Diabetic foot infection (Acute) Condition: Improved - Instructions Diet, Activity, Other Instructions: Mr. Lalo: New Prescription: Please take Augmentin 875/125 mg twice per day for 5 more days. It has been called into your pharmacy. On discharge, please have repeat CBC with your primary care physician so that they can monitor your platelets. In 2014 your platelets were 77, now they are 120, Normal platelets are between 150-200. Please address this with you primary care doctor. Please follow up with an lead burner as we discussed. Recommend that you take Metformin 500mg BID instead of once per day. I have ordered a glucometer for you so that you can monitor your blood sugars. Please test your sugars before each meal and keep a records of the results. Bring the results to the lead burner and your PCP. Please follow up with the geophysical prospecting surveyor in 1 week after discharge so that can re- evaluate foot for healing. Referrals to geophysical prospecting surveyor and lead burner have been placed in your discharge packet. [facility] [phone] Referrals: Helio Stone MD [Staff Physician] - Vianey Simmons MD [Primary Care Provider] - Tika Silva MD [Staff Physician] - Disposition: HOME - Home Medications Comprehensive Discharge Medication List: Ambulatory Orders Alcohol Antiseptic Pads [Caretouch Alcohol Prep Pad] 1 box TP ACHS #1 box Amoxicillin/Potassium Clav [Augmentin 875-125 Tablet] 1 each PO BID #10 tablet 09/16/17 Docusate Sodium [Colace -] 100 mg PO BID capsule 09/16/17 Lancets 1 each ACHS #60 each 09/16/17 Metformin HCl [Metformin HCl ER] 500 mg PO BID #60 tab.er.24 09/16/17 Miscellaneous Medical Supply [Glucometer Device] 1 each SQ ASDIR #1 kit Miscellaneous Medical Supply [Glucometer Test Strips #100] 1 each SQ ASDIR #1 box 09/16/17 Polyethylene Glycol 3350 [Miralax 119 gm Btl -] 17 gm PO DAILY bottle 09/16/17 Ranitidine [Zantac -] 150 mg PO DAILY tablet 09/16/17 This patient is new to me today: No Emergency Visit: Yes ED Registration Date: 09/14/17 Care time: The patient presented to the Emergency Department on the above date and was hospitalized for further evaluation of their emergent condition. Critical Care patient: No - Discharge Referral Referred to [facility] Med P.C.: No
[2017-09-16 14:32] VITALS: BP 108/64; PULSE 72
== END 2017-09-16 17:09 | disposition home or self-care (01) | DRG 420 ==
LOC: FER 23:53 → FM/S 09-14 01:49 → OBSVTOIN 09-14 09:01
PROVIDERS: ADMIT Internal Medicine; ATTEND Nurse Practitioner Family
DX: E11.69 Type 2 diabetes mellitus with other specified complication (principal); L08.9 Local infection of the skin and subcutaneous tissue, unspecified; L03.115 Cellulitis of right lower limb; D69.6 Thrombocytopenia, unspecified; F17.210 Nicotine dependence, cigarettes, uncomplicated; E11.65 Type 2 diabetes mellitus with hyperglycemia
CPT/HCPCS: 36415; 71010-TC; 73630-TC-RT; 73719; 80048; 80053; 83036; 83735; 84100; 85025; 87040; 87070; 87205; 93005; 99283-25; C1887; G0378; G0480

== ENCOUNTER 2019-04-02 14:31 | Emergency (ER) | payer OTHER | END 2019-04-02 18:05 | disposition home or self-care (01) | LOC: FER 14:31 ==

== ENCOUNTER 2021-02-13 10:23 | Emergency (ER) | payer OTHER ==
[2021-02-13 10:34] VITALS: TEMP 98; BMI 25.8
[2021-02-13] MEDS ORDERED: ONDANSETRON 4 MG/2 ML VIAL IVPUSH ONE (10:38)
[2021-02-13] MEDS ORDERED: SODIUM CHLORIDE 0.9% 500 ML INFUS.BAG IV ONE (10:38)
[2021-02-13] MEDS ORDERED: ONDANSETRON 4 MG/2 ML VIAL ONE (10:45)
[2021-02-13 11:02] LABS: BASO % 3.7 % (0-2.0); HEMATOCRIT 51.5 % (35.4-49); HEMOGLOBIN 17.3 GM/dl (11.7-16.9); LYMPH % 38.9 % (8-40); MCH 29.5 pg (25.7-33.7); MCHC 33.6 g/dl (32.0-35.9); MEAN CELL VOLUME 87.8 fl (80-96); MEAN PLT VOLUME 10.9 fl (7.5-11.1); NEUT % 48.4 % (42.8-82.8); PLATELET COUNT 148 K/MM3 (134-434); RBC 5.86 M/mm3 (4.00-5.60); RDW 11.8 % (11.9-15.9); WHITE BLOOD COUNT 7.3 K/mm3 (4.0-10.8)
[2021-02-13 11:12] LABS: ALBUMIN 4.3 g/dl (3.4-5.0); ALK PHOS 64 U/L (45-117); ANION GAP 11 MMOL/L (8-16); BILIRUBIN,TOTAL 0.6 mg/dl (0.2-1); CALCIUM 9.4 mg/dl (8.5-10); CHLORIDE 103 mmol/L (98-107); CO2 21 mmol/L (21-32); CREATININE 0.7 mg/dl (0.55-1.3); GLUCOSE,RANDOM 194 mg/dl (74-106); SGOT/AST 21 U/L (15-37); SGPT/ALT 35 U/L (13-61); SODIUM 135 mmol/L (136-145); TOT PROT 7.7 g/dl (6.4-8.2)
[2021-02-13 12:43] LABS: LIPASE 121 U/L (73-393)
[2021-02-13 13:17] VITALS: BP 126/84; PULSE 88
== END 2021-02-13 13:25 | disposition home or self-care (01) ==
LOC: FER 10:23
PROC: 3E033GC Introduction of Other Therapeutic Substance into Peripheral Vein, Percutaneous Approach (ICD-10-PCS; principal; 2021-02-13)
DX: K52.9 Noninfective gastroenteritis and colitis, unspecified (principal)
CPT/HCPCS: 36415; 71046-TC-FY; 80053; 83690; 84484; 85025; 87804; 93005; 99285-25; C9803; U0003; U0005

== ENCOUNTER 2021-02-19 14:58 | Emergency (ER) | payer OTHER ==
[2021-02-19 15:13] VITALS: BP 138/82; PULSE 88; TEMP 97.6; BMI 25.8
== END 2021-02-19 15:34 | disposition home or self-care (01) ==
LOC: FER 14:58
DX: H66.92 Otitis media, unspecified, left ear (principal); H60.92 Unspecified otitis externa, left ear
CPT/HCPCS: 99283-25

== ENCOUNTER 2023-04-22 03:39 | Emergency (ER) | payer OTHER ==
[2023-04-22 03:51] VITALS: BP 119/76; PULSE 76; RESP 16; TEMP 99.4; BMI 25.9
[2023-04-22] MEDS ORDERED: IBUPROFEN 600 MG TABLET (FP) PO ONE ×2 (04:02→04:10)
== END 2023-04-22 05:24 | disposition home or self-care (01) ==
LOC: FER 03:39
DX: S93.402A Sprain of unspecified ligament of left ankle, initial encounter (principal); X50.1XXA Overexertion from prolonged static or awkward postures, initial encounter
CPT/HCPCS: 73610-TC-LT-FY; 73630-TC-LT; 99283-25